=== PATIENT | male | born 1980 | race Caucasian/White ===

== ENCOUNTER 2017-09-22 07:34 | Day surgery (SDC) | payer SELFPAY ==
[~2017-09-22 07:34] MED LIST: Bupivacaine 25%/EPINEPHrine/PF 30 ML ONE; Dexamethasone 4 MG/ML 5 ML MDV ONE; Ketorolac 30 MG/ML SDV ONE; Lidocaine 2% 5 ML SDV ONE; Midazolam 1 MG/ML 2 ML SDV ONE; Ondansetron 4 MG/2 ML SDV ONE; Propofol 200 MG/20 ML SDV ONE; fentaNYL 100 MCG/2 ML SDV ONE
[2017-09-22] MEDS ORDERED: Atropine 1 MG/ML SDV ONE (07:35)
--- NOTE | 2017-09-22 07:55 | PCM.PREANE ---
Preanesthetic Assessment - Anesthesia/Transfusion/Family Hx Anesthesia History: Prior Anesthesia Without Reaction Family History of Anesthesia Reaction: No Transfusion History: No Prior Transfusion(s) - Review of Systems General: No Symptoms Pulmonary: No Symptoms Cardiovascular: No Symptoms Gastrointestinal: No Symptoms Neurological: No Symptoms Other: Reports: None - Physical Assessment NPO Status Date: 09/21/17 Height: 1.78 m Weight: 124.738 kg ASA Class: 2 Mental Status: Alert & Oriented x3 Airway Class: Mallampati = 2 Dentition: Reports: Normal Dentition ROM/Head Extension: Full Lungs: Clear to Auscultation, Normal Respiratory Effort Cardiovascular: Regular Rate, Regular Rhythm - Allergies Allergies/Adverse Reactions: Allergies Allergy/AdvReac Type Severity Reaction Status Date / Time No Known Allergies Allergy Verified 09/20/17 08:08 - Anesthesia Plan Pre-Op Medication Ordered: None - Acknowledgements Anesthesia Type Planned: MAC Pt an Appropriate Candidate for the Planned Anesthesia: Yes Alternatives and Risks of Anesthesia Discussed w Pt/Guardian: Yes Pt/Guardian Understands and Agrees with Anesthesia Plan: Yes Additional Comments: goes by "AJ", prob KEN, may need oral or nasal airway with MAC PreAnesthesia Questionnaire HEENT History: Reports: Other (See Below) Other HEENT History: wears glasses Cardiovascular History: Reports: Hypertension Respiratory History: Reports: Sleep Apnea Other Respiratory History: uses CPAP Gastrointestinal History: Reports: Other (See Below) Other Gastrointestinal History: occasional heartburn Musculoskeletal History: Reports: Arthritis Psychiatric History: Reports: Anxiety, Depression Endocrine/Metabolic History: Reports: Obesity/BMI 30+ - Past Surgical History Head Surgeries/Procedures: Reports: None Dermatological Surgical History: Reports: Other (See Below) - SUBSTANCE USE Smoking Status *Q: Never Smoker Recreational Drug Use History: No - HOME MEDS Home Medications: Home Meds DULoxetine HCl [Duloxetine HCl] 60 mg PO DAILY 09/20/17 [History] Lisinopril 10 mg PO DAILY 09/20/17 [History] Testosterone Cypionate 1.5 ml IM ASDIRECTED 09/20/17 [History] - CURRENT (IN HOUSE) MEDS Current Meds: Current Medications Hydrocodone Bitart/Acetaminophen ([place] 325-5 Mg) 1 - 2 tab PO Q4H PRN PRN Reason: Pain Bupivacaine HCl/Epinephrine Bitart (Marcaine 0.25%/Epinephrine 1:200,000) 10 ml INJECT ONETIME ONE Stop: 09/22/17 08:01 Cefazolin Sodium/Dextrose 2 gm (/ Premix) 50 mls @ 100 mls/hr IV ONETIME ONE Stop: 09/22/17 08:29 Lactated Ringer's (Ringers, Lactated) 1,000 mls @ 500 mls/hr IV .BOLUS DAMARIS Discontinued Medications Atropine Sulfate (Atropine 1 Mg/Ml) Confirm Administered Dose 1 mg .ROUTE .STK- MED ONE Stop: 09/22/17 07:36 Dexamethasone (Dexamethasone) Confirm Administered Dose 20 mg .ROUTE .STK-MED ONE Stop: 09/22/17 07:26 Dexamethasone (Dexamethasone) Confirm Administered Dose 20 mg .ROUTE .STK-MED ONE Stop: 09/22/17 07:26 Fentanyl (Sublimaze) Confirm Administered Dose 100 mcg .ROUTE .STK-MED ONE Stop: 09/22/17 07:26 Fentanyl (Sublimaze) Confirm Administered Dose 100 mcg .ROUTE .STK-MED ONE Stop: 09/22/17 07:33 Bupivacaine HCl/Epinephrine Bitart (Sensorc Mpf 0.25%-Epi 1:[id number]) Confirm Administered Dose 30 mls @ as directed .ROUTE .STK-MED ONE Stop: 09/22/17 07:32 Ketorolac Tromethamine (Toradol) Confirm Administered Dose 30 mg .ROUTE .STK- MED ONE Stop: 09/22/17 07:26 Ketorolac Tromethamine (Toradol) Confirm Administered Dose 30 mg .ROUTE .STK- MED ONE Stop: 09/22/17 07:26 Lidocaine (Xylocaine-Mpf 2%) Confirm Administered Dose 5 ml .ROUTE .STK-MED ONE Stop: 09/22/17 07:26 Lidocaine (Xylocaine-Mpf 2%) Confirm Administered Dose 5 ml .ROUTE .STK-MED ONE Stop: 09/22/17 07:26 Lidocaine (Xylocaine-Mpf 2%) Confirm Administered Dose 5 ml .ROUTE .STK-MED ONE Stop: 09/22/17 07:33 Midazolam HCl (Versed 1 Mg/Ml) Confirm Administered Dose 2 mg .ROUTE .STK-MED ONE Stop: 09/22/17 07:26 Midazolam HCl (Versed 1 Mg/Ml) Confirm Administered Dose 2 mg .ROUTE .STK-MED ONE Stop: 09/22/17 07:33 Ondansetron HCl (Zofran) Confirm Administered Dose 4 mg .ROUTE .STK-MED ONE Stop: 09/22/17 07:26 Ondansetron HCl (Zofran) Confirm Administered Dose 4 mg .ROUTE .STK-MED ONE Stop: 09/22/17 07:26 Propofol (Diprivan 20 Ml) Confirm Administered Dose 200 mg .ROUTE .STK-MED ONE Stop: 09/22/17 07:26 Propofol (Diprivan 20 Ml) Confirm Administered Dose 400 mg .ROUTE .STK-MED ONE Stop: 09/22/17 07:33
[2017-09-22] MEDS ORDERED: Ondansetron 4 MG/2 ML SDV ONE (07:58)
[2017-09-22] MEDS ORDERED: Lidocaine 2% 5 ML SDV ONE (07:58)
[2017-09-22] MEDS ORDERED: Ketorolac 30 MG/ML SDV ONE (07:58)
[2017-09-22] MEDS ORDERED: Lactated Ringers 1,000 ML IV SCH (08:00)
[2017-09-22] MEDS ORDERED: ceFAZolin 2 GM in Premix Bag 1 BAG IV ONE (08:00)
[2017-09-22] MEDS ORDERED: Bupivacaine 0.25%/EPINEPHrine 1:200,000 10 ML SDV INJECT ONE (08:00)
[2017-09-22] MEDS ORDERED: Acetaminophen/HYDROcodone 325-5 MG Tab PO PRN (08:00)
--- NOTE | 2017-09-22 10:16 | PCM48HPAN ---
Post Anesthesia Note - EVALUATION WITHIN 48HRS OF ANESTHETIC Vital Signs in Normal Range: Yes Patient Participated in Evaluation: Yes Respiratory Function Stable: Yes Airway Patent: Yes Cardiovascular Function Stable: Yes Hydration Status Stable: Yes Pain Control Satisfactory: Yes Nausea and Vomiting Control Satisfactory: Yes Mental Status Recovered: Yes - COMMENTS/OBSERVATIONS Free Text/Narrative:: Pt skipped PACU and returned to phase II awake and on RA. No apparent anesthesia complications.
--- NOTE | 2017-09-22 13:19 | PCM.OPNOTE ---
- General Post-Op/Procedure Note Date of Surgery/Procedure: 09/22/17 Operative Procedure(s): right carpal tunnel release Pre Op Diagnosis: right carpal tunnel Post-Op Diagnosis: Same Anesthesia Technique: Local, MAC Primary Surgeon: Isabell Feng Clock And Watch Hands Mounter: Gracia Cummings Complications: None Condition: Good Free Text/Narrative:: [id number]
--- NOTE | 2017-09-22 20:49 | OR ---
SURGEON: DESIRAE JUSTIN MD DATE OF PROCEDURE: 09/22/2017 PREOPERATIVE DIAGNOSIS: Right carpal tunnel syndrome. POSTOPERATIVE DIAGNOSIS: Right carpal tunnel syndrome. PROCEDURE: Right carpal tunnel release. MIGRANT LEADER: CAMILLE Elise. INDICATIONS: Mr. Hays is a 37-year-old gentleman with right carpal tunnel syndrome. Risks and benefits of release were discussed with him, and he is in agreement to proceed. Risks were including, but not limited to bleeding, infection, damage to underlying or overlying structures, possible need for future interventions, and possible scarring. PROCEDURE IN DETAIL: After informed consent was obtained and placed on the chart, the patient was brought to the operating theater and laid in the supine position. After adequate local MAC anesthesia was obtained, the area was prepped and draped, and a time-out was completed to confirm side and site. The local was injected, and the arm was exsanguinated, and tourniquet was insufflated to 200 mmHg. Attention was then paid to dissection over the transverse carpal ligament using a 15 blade through the skin and subcutaneous tissues until breach of the ligament. Once breached, dissection was then carried distally and proximally under direct visualization using a Littler scissor. Once released, the area was copiously irrigated, and a 5-0 nylon stitch was used in a horizontal mattress to close the skin after irrigation. The wound was dressed with Xeroform, fluffs, Kerlix gauze dressing, and 2-inch Jarett wrap. The patient tolerated this well, and all counts and needles were correct at the end of the case. FOLLOWUP INSTRUCTIONS: The patient will see us in 10 to 14 days for the second side, sooner if any problems, questions, or concerns and was given a prescription for pain control. HEGGTHE / MODL /[id number]
== END 2017-09-22 10:10 | disposition home or self-care (01) ==
LOC: MW.SDS 07:34
PROVIDERS: ATTEND Plastic Surgery
DX: G56.03 Carpal tunnel syndrome, bilateral upper limbs (principal); J30.9 Allergic rhinitis, unspecified; F41.8 Other specified anxiety disorders; I10 Essential (primary) hypertension; E29.1 Testicular hypofunction; R09.81 Nasal congestion; E66.9 Obesity, unspecified; G47.30 Sleep apnea, unspecified; M19.90 Unspecified osteoarthritis, unspecified site; Z79.899 Other long term (current) drug therapy; Z68.39 Body mass index [BMI] 39.0-39.9, adult; Z99.89 Dependence on other enabling machines and devices
CPT/HCPCS: 64721; J2250; J3010; J7120; J0461; J0690; J1100; J1885; J2405; J2704

== ENCOUNTER 2017-10-04 07:21 | Day surgery (SDC) | payer SELFPAY ==
[~2017-10-04 07:21] MED LIST changes: +Acetaminophen/HYDROcodone 325-5 MG Tab PO PRN; +Bupivacaine 0.25%/EPINEPHrine 1:200,000 10 ML SDV INJECT ONE; -Bupivacaine 25%/EPINEPHrine/PF 30 ML ONE; -Dexamethasone 4 MG/ML 5 ML MDV ONE; -Ketorolac 30 MG/ML SDV ONE; -Lidocaine 2% 5 ML SDV ONE; -Midazolam 1 MG/ML 2 ML SDV ONE; -Ondansetron 4 MG/2 ML SDV ONE; -Propofol 200 MG/20 ML SDV ONE; -fentaNYL 100 MCG/2 ML SDV ONE
[2017-10-04] MEDS ORDERED: Lidocaine 2% 5 ML SDV ONE (07:31)
[2017-10-04] MEDS ORDERED: Midazolam 1 MG/ML 2 ML SDV ONE (07:31)
[2017-10-04] MEDS ORDERED: Propofol 200 MG/20 ML SDV ONE (07:31)
[2017-10-04] MEDS ORDERED: fentaNYL 100 MCG/2 ML SDV ONE (07:31)
[2017-10-04] MEDS ORDERED: Bupivacaine 25%/EPINEPHrine/PF 30 ML ONE (07:34)
--- NOTE | 2017-10-04 07:37 | PCM.PREANE ---
Preanesthetic Assessment - Procedure Proposed Procedure: Left carpal tunnel release - Anesthesia/Transfusion/Family Hx Anesthesia History: Prior Anesthesia Without Reaction Family History of Anesthesia Reaction: No Transfusion History: No Prior Transfusion(s) - Review of Systems Other: Reports: None - Physical Assessment NPO Status Date: 10/03/17 NPO Status Time: 19:00 Pulse: 91 O2 Sat by Pulse Oximetry: 95 Respiratory Rate: 16 Blood Pressure: 127/72 Temperature: 35.4 C Height: 5 ft 10 in Weight: 124.738 kg ASA Class: 2 Mental Status: Alert & Oriented x3 Airway Class: Mallampati = 2 Dentition: Reports: Normal Dentition Thyro-Mental Finger Breadths: 3 Mouth Opening Finger Breadths: 3 ROM/Head Extension: Full - Allergies Allergies/Adverse Reactions: Allergies Allergy/AdvReac Type Severity Reaction Status Date / Time No Known Allergies Allergy Verified 09/29/17 10:26 - Blood Blood Available: No - Acknowledgements Anesthesia Type Planned: MAC Pt an Appropriate Candidate for the Planned Anesthesia: Yes Alternatives and Risks of Anesthesia Discussed w Pt/Guardian: Yes Pt/Guardian Understands and Agrees with Anesthesia Plan: Yes PreAnesthesia Questionnaire HEENT History: Reports: Allergic Rhinitis, Other (See Below) Other HEENT History: wears glasses Cardiovascular History: Reports: Hypertension Respiratory History: Reports: Sleep Apnea Other Respiratory History: has CPAP but does not use Gastrointestinal History: Reports: Other (See Below) Other Gastrointestinal History: occasional heartburn Genitourinary History: Reports: UTI, Recurrent Other Genitourinary History: hypoganadism Musculoskeletal History: Reports: Arthritis Psychiatric History: Reports: Anxiety, Depression Endocrine/Metabolic History: Reports: Obesity/BMI 30+ - Past Surgical History Head Surgeries/Procedures: Reports: None Musculoskeletal Surgical History: Reports: Carpal Tunnel - SUBSTANCE USE Smoking Status *Q: Never Smoker Recreational Drug Use History: No - HOME MEDS Home Medications: Home Meds DULoxetine HCl [Duloxetine HCl] 60 mg PO DAILY 09/20/17 [History] Lisinopril 10 mg PO DAILY 09/20/17 [History] Testosterone Cypionate 1.5 ml IM ASDIRECTED 09/20/17 [History] - CURRENT (IN HOUSE) MEDS Current Meds: Current Medications Hydrocodone Bitart/Acetaminophen ([place] 325-5 Mg) 1 tab PO Q4H PRN PRN Reason: Pain Cefazolin Sodium/Dextrose 2 gm (/ Premix) 50 mls @ 100 mls/hr IV ONETIME ONE Stop: 10/04/17 08:29 Lactated Ringer's (Ringers, Lactated) 1,000 mls @ 500 mls/hr IV .BOLUS DAMARIS Discontinued Medications Bupivacaine HCl/Epinephrine Bitart ([place]aine 0.25%/Epinephrine 1:200,000) 10 ml INJECT ONETIME ONE Stop: 10/04/17 06:01
[2017-10-04] MEDS ORDERED: Lactated Ringers 1,000 ML IV SCH (08:00)
[2017-10-04] MEDS ORDERED: ceFAZolin 2 GM in Premix Bag 1 BAG IV ONE (08:00)
[2017-10-04] MEDS ORDERED: ceFAZolin/Dextrose,Iso-Osmotic 2 GM/50 ML Duplex Bag IV ONE (08:29)
--- NOTE | 2017-10-04 10:14 | PCM48HPAN ---
Post Anesthesia Note - EVALUATION WITHIN 48HRS OF ANESTHETIC Vital Signs in Normal Range: Yes Patient Participated in Evaluation: Yes Respiratory Function Stable: Yes Airway Patent: Yes Cardiovascular Function Stable: Yes Hydration Status Stable: Yes Pain Control Satisfactory: Yes Nausea and Vomiting Control Satisfactory: Yes Mental Status Recovered: Yes - COMMENTS/OBSERVATIONS Free Text/Narrative:: no anesthesia problems, patient skipped recovery room phase of postoperative care
--- NOTE | 2017-10-05 07:59 | PCM.OPNOTE ---
- General Post-Op/Procedure Note Date of Surgery/Procedure: 10/04/17 Operative Procedure(s): left carpal tunnel release Pre Op Diagnosis: left carpal tunnel syndrome Post-Op Diagnosis: Same Anesthesia Technique: Local, MAC Primary Surgeon: Isabell Feng Enrollment Nurse: Gracia Cummings Complications: None Condition: Good
--- NOTE | 2017-10-05 12:29 | OR ---
SURGEON: DESIRAE JUSTIN MD DATE OF PROCEDURE: 10/04/2017 PREOPERATIVE DIAGNOSIS: Left carpal tunnel syndrome. POSTOPERATIVE DIAGNOSIS: Left carpal tunnel syndrome. PROCEDURE: Left carpal tunnel release. SHOP AND ALTERATION TAILOR: CAMILLE Elise. INDICATIONS: Mr. Hays is a 37-year-old gentleman, who has bilateral severe carpal tunnel. We did a right carpal tunnel release two weeks ago and he has tolerated this well. He is here for the left. Risks and benefits were discussed including, but not limited to, bleeding, infection, damage to underlying or overlying structures, possible need for future interventions, possible scarring. PROCEDURE IN DETAIL: After informed consent was obtained and placed on the chart, the patient was brought to the operating theater and laid in supine position. After adequate local MAC anesthesia was obtained, the area was prepped and draped. A time-out was completed to confirm side and site. 0.25% Marcaine with epinephrine was injected into the area. The arm was exsanguinated and the tourniquet was then inflated to 200 mmHg. Once adequately prepared, the attention was then paid to dissection over the transverse carpal ligament using a 15 blade. Dissection was carried through skin and subcutaneous tissues under direct visualization, and the ligament was breached. Dissection was then carried distally and proximally until complete release. Minimal neurolysis was performed. Once adequately freed, the area was irrigated and closed using 5-0 nylon stitch in interrupted fashion. It was noted that the tourniquet popped and unfortunately, it was not functioning throughout the case, and a Bovie had been used to obtain minor hemostasis. Effective tourniquet time was zero. Once the wound was closed using a 5-0 nylon stitch in a horizontal mattress fashion, dressed with Xeroform, fluffs, Kerlix gauze dressing, and 2-inch Jarett wrap. The patient was transferred to the PACU in stable condition. He tolerated this well, and all counts needles were correct at the end of the case. FOLLOWUP INSTRUCTIONS: The patient will see us in 2 weeks sooner if any problems, questions, or concerns. He was given a prescription for [place]. HEGGTHE / MODL /[id number]
== END 2017-10-04 10:25 | disposition home or self-care (01) ==
LOC: MW.SDS 07:21
PROVIDERS: ATTEND Plastic Surgery
DX: G56.03 Carpal tunnel syndrome, bilateral upper limbs (principal); J30.9 Allergic rhinitis, unspecified; F41.8 Other specified anxiety disorders; I10 Essential (primary) hypertension; E29.1 Testicular hypofunction; G47.30 Sleep apnea, unspecified; M19.90 Unspecified osteoarthritis, unspecified site; R09.81 Nasal congestion; E66.9 Obesity, unspecified; Z79.899 Other long term (current) drug therapy; Z68.39 Body mass index [BMI] 39.0-39.9, adult
CPT/HCPCS: 64721; J2250; J3010; J7120; 01810; J0690; J2704